=== PATIENT | female | born 1960 | race Two or more races ===

== ENCOUNTER 2019-02-13 16:13 | Emergency (ER) | payer OTHER ==
[~2019-02-13] VITALS: Ht 165.1 cm; Wt 77.1 kg
[2019-02-13] MEDS ORDERED: LEVOTHYROXINE25 MCG PO (16:26)
[2019-02-13] MEDS ORDERED: TOPROL XL25 MG PO (16:26)
== END 2019-02-13 19:29 | disposition home or self-care (01) ==
LOC: ER 16:13
DX: B34.9 Viral infection, unspecified (principal)

== ENCOUNTER → 2025-06-24 | Day surgery (SDC) | payer OTHER ==
[2025-06-21 08:25] VITALS: BP 121/80
[2025-06-21 08:46] LABS: BASO % 1.0 % (0.1-1.2); EOS # 0.24 (0.04-0.54); EOS % 6.0 % (0.7-7.0); LYMPH # 1.27 (1.18-3.74); LYMPH % 31.9 % (19.3-53.1); MEAN PLATELET VOLUME 8.90 fl (9.4-12.4); MONO # 0.47 (0.24-0.82); MONO % 11.8 % (4.7-12.5); NEUT # 1.95 (1.56-6.13); NEUT % 49.0 % (34.0-71.1); RED CELL DISTRIBUTION WIDTH 13.7 % (11.6-14.4)
[2025-06-21 09:03] LABS: INR 0.99
[2025-06-21 09:20] LABS: ALT/SGPT 53.0 U/L (12-78); AST/SGOT 24.0 U/L (15-37); BILIRUBIN TOTAL 0.45 mg/dL (0.3-1.2); BUN CREA RATIO 24.0 (7.0-25.0); CREATININE SERUM 0.5 mg/dL (0.55-1.02); GFR 125.02; GLOBULINA 2.9 G/DL (2.4-3.5); GLUCOSE FASTING 93.0 mg/dL (65-100); OSMOLALITY SERUM 286.0 MOSM/KG (275-295)
[~2025-06-24] VITALS: Ht 157.5 cm; Wt 78.0 kg
[~2025-06-24] MED LIST: GLUCAGON 1 MG VIAL ONE; LEVOTHYROXINE25 MCG PO; ONDANSETRON HCL 2 MG/ML VIAL ONE; TOPROL XL25 MG PO
== END | disposition home or self-care (01) ==
LOC: ADM 06-21 07:15 → CIR.AMB 07:15
PROVIDERS: ATTEND Internal Medicine
DX: K55.20 Angiodysplasia of colon without hemorrhage (principal); K29.60 Other gastritis without bleeding; K44.9 Diaphragmatic hernia without obstruction or gangrene; D50.9 Iron deficiency anemia, unspecified; R93.3 Abnormal findings on diagnostic imaging of other parts of digestive tract; Q27.39 Arteriovenous malformation, other site; Z88.2 Allergy status to sulfonamides; Q27.33 Arteriovenous malformation of digestive system vessel

== ENCOUNTER 2025-09-20 08:12 | Emergency (ER) | payer OTHER ==
[~2025-09-20] VITALS: Ht 157.5 cm; Wt 77.1 kg
[~2025-09-20 08:12] MED LIST changes: -GLUCAGON 1 MG VIAL ONE; -ONDANSETRON HCL 2 MG/ML VIAL ONE
[2025-09-20] MEDS ORDERED: IRON236 MG (08:50)
[2025-09-20] MEDS ORDERED: ONDANSETRON HCL 2 MG/ML VIAL IV ONE (09:45)
[2025-09-20] MEDS ORDERED: 0.9 % SODIUM CHLORIDE 1,000 ML IV ONE (09:45)
[2025-09-20] MEDS ORDERED: HYOSCYAMINE SULFATE 0.125 MG TAB.SUBL SL ONE (09:45)
[2025-09-20] MEDS ORDERED: PANTOPRAZOLE SODIUM 40 MG/VIAL VIAL IV PUSH ONE ×2 (09:45→14:15)
[2025-09-20] MEDS ORDERED: HYOSCYAMINE SULFATE 0.125 MG TAB.SUBL ONE (10:04)
[2025-09-20] MEDS ORDERED: ONDANSETRON HCL 2 MG/ML VIAL ONE (10:04)
[2025-09-20 10:50] LABS: BASO % 0.5 % (0.1-1.2); EOS # 0.04 (0.04-0.54); EOS % 0.7 % (0.7-7.0); LYMPH # 0.46 (1.18-3.74); LYMPH % 7.5 % (19.3-53.1); MEAN PLATELET VOLUME 9.40 fl (9.4-12.4); MONO # 0.44 (0.24-0.82); MONO % 7.2 % (4.7-12.5); NEUT # 5.15 (1.56-6.13); NEUT % 83.6 % (34.0-71.1); RED CELL DISTRIBUTION WIDTH 13.9 % (11.6-14.4)
[2025-09-20 11:34] LABS: URINE APPEARANCE Clear; URINE BILIRRUBIN Negative (NEGATIVE); URINE BLOOD Negative; URINE COLOR Yellow; URINE GLUCOSE Negative (NEGATIVE); URINE KETONE Negative (NEGATIVE); URINE LEUKOCYTE Negative; URINE NITRATE Negative; URINE PROTEIN Negative (NEGATIVE); URINE UROBILINOGEN 0.2 E.U./dl
[2025-09-20 11:37] LABS: URINE BACTERIA 1513.1 uL (0.0-1933); URINE EPITHELIAL CELLS 26.6 uL (0.0-38.8); URINE RBC 3.1 uL (0.0-20.8); URINE WBC 7.9 uL (0.0-23.2)
[2025-09-20 11:40] LABS: INR 1.05
[2025-09-20 11:41] LABS: URINE CAST 0.14 uL (0.0-1.40)
[2025-09-20 11:43] LABS: ALT/SGPT 50.0 U/L (12-78); AST/SGOT 31.0 U/L (15-37); BILIRUBIN TOTAL 0.66 mg/dL (0.3-1.2); BUN CREA RATIO 49.0 (7.0-25.0); CREATININE SERUM 0.55 mg/dL (0.55-1.02); GFR 112.0; GLOBULINA 3.8 G/DL (2.4-3.5); GLUCOSE FASTING 109.0 mg/dL (65-100); OSMOLALITY SERUM 291.0 MOSM/KG (275-295)
[2025-09-20] MEDS ORDERED: CEFTRIAXONE SODIUM 1,000 MG VIAL IV ONE (12:00)
[2025-09-20] MEDS ORDERED: CEFTRIAXONE SODIUM 1,000 MG VIAL ONE (12:14)
[2025-09-20] MEDS ORDERED: OCTREOTIDE ACETATE IV ONE (14:15)
[2025-09-20] MEDS ORDERED: OCTREOTIDE ACETATE 0.05MG/ML (50MCG/ML) AMPUL IV ONE (14:30)
[2025-09-20] MEDS ORDERED: OCTREOTIDE ACETATE 0.05MG/ML (50MCG/ML) AMPUL ONE (15:37)
== END 2025-09-20 15:59 | disposition home or self-care (01) ==
LOC: ER 08:13
PROVIDERS: General Practice
DX: K52.89 Other specified noninfective gastroenteritis and colitis (principal); R11.10 Vomiting, unspecified; Z88.2 Allergy status to sulfonamides; I10 Essential (primary) hypertension